=== PATIENT | female | born 1950 | race Caucasian/White ===

== ENCOUNTER 2019-05-11 06:18 | Emergency (ER) | payer MEDICARE, BC ==
[2019-05-11] MEDS: Ketorolac 60 MG/2 ML SDV IM ONE (07:25)
--- NOTE | 2019-05-11 14:41 | ER ---
REASON FOR EMERGENCY ROOM VISIT: Pain and swelling, right wrist. HISTORY: This 69-year-old woman, has been in the area ice fishing with her and comes in with a complaint of pain in her right wrist with episodes of numbness and tingling in the index, middle, and ring finger of her right hand. Her history dates back 10 days ago when she developed what she felt was sensation of swelling in the right hand that was bothersome for approximately 2 days. She went to an orthopedic walk-in clinic in [place]. X- rays were taken and they states she was told they were all negative. She went home and went to urgent care clinic in [place] last week about 4 days after the orthopedic surgery clinic visit and states that she was treated with Naprosyn. There was some discussion undertaken about the possibility that this might represent carpal tunnel syndrome. She stated that the Naprosyn did help, but she has not taken any for the past 2 or 3 nights now. Since they have been up ice fishing, she has trouble with sensation of numbness and tingling involving both the same middle 3 fingers, some pain and a sensation of swelling about the right wrist. She states when she was home, she placed a splint about her right wrist and states that "it helped." Yesterday, the painful swelling in the right wrist seemed to worsen and she tried the splint, but it did not provide her any relief. They came in this morning requesting some pain medication for her right wrist discomfort. It should be noted that the patient and her were quite belligerent and demanding to the nurse who was trying to check them into the emergency room and they were critical of the nurse and the facility in general for not addressing their needs more promptly. When I was asking her about past medical history, she shot back at me stating "that is none of your business." I tried to explain why I thought it was important. Eventually, she did reveal some of her past medical history at least. She has not had any other joint complaints. She denies any fever or trauma to the right arm or right wrist area. 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 She did not receive any chemotherapy or radiation postoperatively. She has not had any sequelae from this at all. MEDICATIONS: Crestor. ALLERGIES: NONE TO MEDICATIONS. REVIEW OF SYSTEMS: Pertinent positives and negatives as listed in the HPI. PHYSICAL EXAMINATION: EXTREMITIES: Right wrist and hand: There is no perceivable discernible swelling, although she feels subjectively that there is more swelling in the right hand versus left. She denies any numbness or tingling at this particular time, but states it was bothering her last evening. Passive range of motion of all the joints in her wrist and hand are unremarkable. There is no crepitus. There is no joint swelling or deformity. Tinel's sign about the right wrist is negative at this time. Intrinsic muscle testing including opposition, flexion, extension, abduction and abduction are all normal. Sensation is intact to dull touch. I did do sharp testing for more precise sensory examination at this time. IMPRESSION: History and symptoms seem to be most consistent with a carpal tunnel syndrome. PLAN: Since the splinting has worked in the past, as has the Naprosyn, I suggested they go back to this to begin with. They were quite insistent that she receive pain medication and when I started to suggest some tramadol, they immediately said "that does not work" and went on to demand that she receive a prescription for 5 mg of oxycodone. I explained to them that it would not be my 1st step at this juncture and that the real solution to their problem is to have an evaluation for carpal tunnel syndrome, which may include nerve conduction studies and electrodiagnostic testing. They assured me that they will return to see their orthopedic doctor in [place] at the walk-in clinic again. I did recommend a Toradol injection and they accepted this. I advised them not to take any Naprosyn for at least 8 hours while she has this on board and they understand. She was given 30 mg of Toradol IM and a splint was applied to her right wrist as the previous splint was something that she devised at home. Other measures such as repetitive work with the right hand and so forth were discussed and that she should avoid these inciting factors. They understand and agree with this temporizing measure and also agree that definitive testing and workup and treatment needs to be considered at this time. They also seem to understand my rationale for feeling that oxycodone would not be a good choice at this point in time. All questions were answered. JIM/DELMIS /[id number]
== END 2019-05-11 07:30 | disposition home or self-care (01) ==
LOC: LB.ED 06:18
DX: M25.531 Pain in right wrist (principal)
CPT/HCPCS: 29125; 96372; 99283; 99283-25; J1885